=== PATIENT | female | born 1960 | race Caucasian/White ===

== ENCOUNTER 2017-01-13 10:10 | Emergency (ER) | payer OTHER ==
[~2017-01-13] VITALS: Ht 170.2 cm; Wt 74.7 kg
[2017-01-13 10:11] VITALS: BP 127/79
[2017-01-13 11:39] LABS: RAPID INFLUENZA A POSITIVE (Negative); RAPID INFLUENZA B Negative (Negative)
== END 2017-01-13 12:12 | disposition home or self-care (01) ==
LOC: EDBD 10:10 → ED 12:00
DX: J09.X2 Influenza due to identified novel influenza A virus with other respiratory manifestations (principal)
CPT/HCPCS: 71020; 87081; 87400; 87880; 99285